=== PATIENT | female | born 1980 | race Caucasian/White ===

== ENCOUNTER 2018-04-19 19:19 | Emergency (ER) | payer MEDICAID ==
[~2018-04-19] VITALS: Ht 152.4 cm; Wt 82.5 kg
[2018-04-19 19:28] VITALS: BP 144/85; Ht 152.4 cm; Wt 82.5 kg
== END 2018-04-19 22:43 | disposition home or self-care (01) ==
LOC: ED 19:19
DX: S43.102A Unspecified dislocation of left acromioclavicular joint, initial encounter (principal); S13.4XXA Sprain of ligaments of cervical spine, initial encounter; J45.909 Unspecified asthma, uncomplicated; V49.9XXA Car occupant (driver) (passenger) injured in unspecified traffic accident, initial encounter; Y93.89 Activity, other specified; Y92.89 Other specified places as the place of occurrence of the external cause; Y99.8 Other external cause status

== ENCOUNTER 2018-10-12 02:57 | Emergency (ER) | payer MEDICAID ==
[~2018-10-12] VITALS: Ht 157.5 cm; Wt 83.0 kg
[2018-10-12 03:16] VITALS: Ht 157.5 cm; Wt 83.0 kg
[2018-10-12 08:05] VITALS: BP 133/78
== END 2018-10-12 08:00 | disposition home or self-care (01) ==
LOC: ED 02:57
DX: N39.0 Urinary tract infection, site not specified (principal); R06.02 Shortness of breath; J45.909 Unspecified asthma, uncomplicated
CPT/HCPCS: Q0092

== ENCOUNTER 2019-04-27 21:05 | Emergency (ER) | payer MEDICAID ==
[~2019-04-27] VITALS: Ht 157.5 cm; Wt 90.7 kg
[2019-04-27 21:30] VITALS: Ht 157.5 cm; Wt 90.7 kg
[2019-04-27 22:56] VITALS: BP 128/83
== END 2019-04-27 22:56 | disposition home or self-care (01) ==
LOC: ED 21:05
DX: O99.511 Diseases of the respiratory system complicating pregnancy, first trimester (principal); J45.901 Unspecified asthma with (acute) exacerbation; Z3A.01 Less than 8 weeks gestation of pregnancy
CPT/HCPCS: J7613; J7644

== ENCOUNTER 2019-04-28 18:39 | Emergency (ER) | payer OTHER | END 2019-04-28 21:54 | disposition other institution (70) | LOC: ED 18:39 | DX: Z02.89 Encounter for other administrative examinations (principal) ==

== ENCOUNTER 2019-04-28 18:39 | Emergency (ER) | payer MEDICAID ==
[~2019-04-28] VITALS: Ht 157.5 cm; Wt 81.6 kg
[2019-04-28 18:42] VITALS: Ht 157.5 cm; Wt 81.6 kg
[2019-04-28 21:54] VITALS: BP 128/76
== END 2019-04-28 21:54 | disposition other institution (70) ==
LOC: ED 18:39
DX: O26.891 Other specified pregnancy related conditions, first trimester (principal); S00.83XA Contusion of other part of head, initial encounter; S20.411A Abrasion of right back wall of thorax, initial encounter; J45.909 Unspecified asthma, uncomplicated; Z3A.01 Less than 8 weeks gestation of pregnancy; Y04.8XXA Assault by other bodily force, initial encounter; Y93.89 Activity, other specified; Y92.89 Other specified places as the place of occurrence of the external cause; Y99.8 Other external cause status

== ENCOUNTER 2019-06-07 05:25 | Emergency (ER) | payer MEDICAID ==
[~2019-06-07] VITALS: Ht 157.5 cm; Wt 90.7 kg
[2019-06-07 05:28] VITALS: Ht 157.5 cm; Wt 90.7 kg
[2019-06-07 07:30] LABS: BASOPHIL % 0.3 % (0-2); PLATELET COUNT 256 x10^3mcL (130-400)
[2019-06-07 08:25] VITALS: BP 116/63
== END 2019-06-07 08:25 | disposition home or self-care (01) ==
LOC: ED 05:25
PROVIDERS: Emergency Medicine
DX: O20.0 Threatened abortion (principal); J45.909 Unspecified asthma, uncomplicated
CPT/HCPCS: 36415

== ENCOUNTER 2019-07-15 19:50 | Emergency (ER) | payer MEDICAID ==
[~2019-07-15] VITALS: Ht 157.5 cm; Wt 92.5 kg
[2019-07-15 19:57] VITALS: Ht 157.5 cm; Wt 92.5 kg
[2019-07-15 21:06] VITALS: BP 113/73
== END 2019-07-15 21:06 | disposition home or self-care (01) ==
LOC: ED 19:50
DX: O26.892 Other specified pregnancy related conditions, second trimester (principal); O99.512 Diseases of the respiratory system complicating pregnancy, second trimester; J45.909 Unspecified asthma, uncomplicated; R30.0 Dysuria; Z3A.15 15 weeks gestation of pregnancy; Z13.89 Encounter for screening for other disorder; Z11.3 Encounter for screening for infections with a predominantly sexual mode of transmission

== ENCOUNTER 2019-08-01 00:35 | Emergency (ER) | payer MEDICAID ==
[~2019-08-01] VITALS: Ht 157.5 cm; Wt 93.4 kg
[2019-08-01 01:34] VITALS: BP 128/77
== END 2019-08-01 01:34 | disposition home or self-care (01) ==
LOC: ED 00:35
DX: O98.111 Syphilis complicating pregnancy, first trimester (principal); O99.511 Diseases of the respiratory system complicating pregnancy, first trimester; J45.909 Unspecified asthma, uncomplicated; Z3A.01 Less than 8 weeks gestation of pregnancy
CPT/HCPCS: J0561

== ENCOUNTER 2019-08-10 23:56 | Emergency (ER) | payer MEDICAID ==
[~2019-08-10] VITALS: Ht 157.5 cm; Wt 98.4 kg
[2019-08-11 00:01] VITALS: Ht 157.5 cm; Wt 98.4 kg
[2019-08-11 01:02] VITALS: BP 132/86
== END 2019-08-11 01:02 | disposition home or self-care (01) ==
LOC: ED 23:56
DX: A53.9 Syphilis, unspecified (principal); J45.909 Unspecified asthma, uncomplicated
CPT/HCPCS: J0561

== ENCOUNTER 2019-08-19 04:06 | Emergency (ER) | payer MEDICAID ==
[~2019-08-19] VITALS: Ht 157.5 cm; Wt 95.7 kg
[2019-08-19 04:23] VITALS: BP 128/82; Ht 157.5 cm; Wt 95.7 kg
== END 2019-08-19 04:58 | disposition home or self-care (01) ==
LOC: ED 04:06
DX: O98.311 Other infections with a predominantly sexual mode of transmission complicating pregnancy, first trimester (principal); O99.511 Diseases of the respiratory system complicating pregnancy, first trimester; J45.909 Unspecified asthma, uncomplicated; Z3A.12 12 weeks gestation of pregnancy
CPT/HCPCS: J0561

== ENCOUNTER 2019-12-13 21:25 | Emergency (ER) | payer MEDICAID ==
[~2019-12-13] VITALS: Ht 157.5 cm; Wt 96.6 kg
[2019-12-13 21:30] VITALS: Ht 157.5 cm; Wt 96.6 kg
[2019-12-13 22:01] VITALS: BP 138/72
== END 2019-12-13 22:01 | disposition home or self-care (01) ==
LOC: ED 21:25
DX: O86.00 Infection of obstetric surgical wound, unspecified (principal); J45.909 Unspecified asthma, uncomplicated
CPT/HCPCS: J3490

== ENCOUNTER 2020-08-13 08:48 | Emergency (ER) | payer MEDICAID ==
[~2020-08-13] VITALS: Ht 160 cm; Wt 113.4 kg
[2020-08-13 08:57] VITALS: Ht 160 cm; Wt 113.4 kg
[2020-08-13 09:56] VITALS: BP 133/89
== END 2020-08-13 10:06 | disposition home or self-care (01) ==
LOC: ED 08:48
DX: H16.8 Other keratitis (principal); F17.210 Nicotine dependence, cigarettes, uncomplicated; Z71.6 Tobacco abuse counseling; J45.909 Unspecified asthma, uncomplicated
CPT/HCPCS: 90715; 99406